=== PATIENT | female | born 1955 | race Caucasian/White ===

== ENCOUNTER 2021-04-22 22:51 | Inpatient (IN) | payer MEDICARE, SELFPAY ==
[2021-04-22 22:56] VITALS: BP 152/88; PULSE 76; RESP 18; TEMP 36.6; O2SAT 100; BMI 20.1
--- NOTE | 2021-04-22 22:58 | ED.C_ITS ---
HPI - Psych General: Chief Complaint: Psychiatric Symptoms Stated Complaint: SI Time Seen by Provider: 04/22/21 22:52 Source: patient, EMS and police Mode of arrival: EMS Limitations: no limitations History of Present Illness: HPI Narrative: 66-year-old female who is here with police along with EMS. Patient had rested her the night and will call for DUI. States that she got very angry wants to rest today and they were she became combative with them stating that she no longer wanted to live since she is being arrested. She told him that she want to run into a 18 butterfield. Patient here is intoxicated and elevated mood has not been combative is cooperative with me she denies being suicidal or homicidal at this point. Associated symptoms: Reports suicidal ideation Review of Systems Const: Denies: fever(s), chills, body aches or change in appetite Eyes: Denies: blurry vision or eye discomfort ENMT: Denies: throat pain or dental pain Card: Denies: chest pain Resp: Denies: dyspnea GI: Denies: abdominal pain, nausea, vomiting or diarrhea : Denies: dysuria Musc: Denies: neck pain or back pain Skin/Breast: Denies: rash Neuro: Denies: headache(s) Psych: Reports: suicidal ideation Santo/Lymph: Denies: easy bruising All/Imm: Denies: urticaria Physical Exam Const: COMMON NORMALS: no acute distress, patient oriented x3 and healthy appearing GENERAL APPEARANCE: disheveled OTHER: intoxicated HENMT: COMMON NORMALS: normocephalic and atraumatic HEAD & SCALP: normocephalic and atraumatic Eye: COMMON NORMALS: Equal, round and reactive pupils present and EOMs intact bilaterally PUPIL: Yes Equal, round and reactive pupils present Neck/C-Spine: COMMON NORMALS: full ROM and supple Chest: COMMONS NORMALS: normal inspection of the chest and normal palpation of entire chest wall Resp: COMMON NORMALS: normal respiratory effort, No retractions, No use of accessory muscles and clear to auscultation bilaterally AUSCULTATION: clear to auscultation bilaterally Cardio: COMMON NORMALS: regular rate, regular rhythm and No murmurs present (Cardio) RATE: regular rate RHYTHM: regular rhythm GI: COMMON NORMALS: Normal to inspection, nondistended, normoactive bowel sounds present, Soft to palpation, non-tender and no masses PALPATION: Yes Soft to palpation Extremity: COMMON NORMALS: normal to inspection and full ROM Neuro: COMMON NORMALS: patient oriented x3, moves all extremities and no focal motor deficits Psych: COMMON NORMALS: mental status grossly normal, Normal thought process present and cooperative ACTIVITY/MOTOR BEHAVIOR: Yes hyperactivity MOOD & AFFECT: Yes elevated mood THOUGHT PROCESS: Normal thought process present THOUGHT CONTENT: No Suicidality present and No Homicidality present Skin: COMMON NORMALS: no rashes or lesions noted and no wounds GENERAL SKIN EXAM: no rashes or lesions noted Course Vital Signs: Vital signs: Vital Signs Temperature 97.9 F 04/22/21 22:56 Pulse Rate 70 04/23/21 03:00 Respiratory Rate 15 04/23/21 03:00 Blood Pressure 124/67 04/23/21 03:00 Pulse Oximetry 95 04/23/21 03:00 MDM - Psych MDM Narrative: Medical decision making narrative: Patient presents here with suicidal ideation with alcohol intoxication. I had patient evaluated by Dr. Flores who feels she needs to be under 96-hour hold and further evaluation patient's been cooperative here. Spoke to Dr. Mosqueda and will admit to the psychiatric unit. Lab Data: Labs: Lab Results 04/22/21 04/22/21 23:05 23:05 WBC 10.2 10^3/uL H 10 ^3/uL (4.0-10.0) RBC 4.79 10^6/uL 10^6 /uL (4.1-5.3) Hgb 15.8 g/dL H g/dL (11.5-15.3) Hct 45.8 % % (37.0-47.0) MCV 95.6 fl fl (81-99) MCH 33.0 pg pg (28.0-34.0) MCHC 34.5 g/dL g/dL (30.0-36.0) RDW 12.3 % % (12.1-15.1) Plt Count 388 10^3/cmm 10^3 /cmm (130-400) MPV 9.1 fL fL (7.4-10.4) Neut % (Auto) 45.4 % % Lymph % (Auto) 44.2 % % [place] % (Auto) 6.0 % % Eos % (Auto) 2.6 % % Baso % (Auto) 0.5 % % Neut # (Auto) 4.62 10^3/uL 10^3 /uL (1.8-7.7) Lymph # (Auto) 4.5 10^3/uL 10^3/ uL (0.8-4.8) [place] # (Auto) 0.6 10^3/uL 10^3/ uL (0.2-0.9) Eos # (Auto) 0.3 10^3/uL 10^3/ uL (0.0-0.8) Baso # (Auto) 0.1 10^3/uL 10^3/ uL (0.0-0.1) Nucleated RBC % (a uto) 0 % % Nucleated RBCs # 0.0 /100WBC /100W BC Sodium 140 mmol/L mmol/L (136-145) Potassium 4.6 mmol/L mmol/L (3.5-5.1) Chloride 99 mmol/L mmol/L (98-107) Carbon Dioxide 23 mmol/L mmol/L (22-29) Anion Gap 22.6 H (5-19) BUN 14 mg/dL mg/dL (8-23) Creatinine 0.6 mg/dL mg/dL (0.5-0.9) GFR Calculation 100.3 mL/min mL/m in (90-130) Glucose 73 mg/dL mg/dL (65-115) Calculated Osmolal ity 289 mOsm/kg mOsm/ kg (285-295) Calcium 8.8 mg/dL mg/dL (8.5-10.5) Total Bilirubin 0.4 mg/dL mg/dL (0.15-1.2) AST 148 U/L H U/L (0-32) ALT 124 U/L H U/L (0-33) Alkaline Phosphata se 80 IU/L IU/L (35-105) Total Protein 8.0 g/dL g/dL (6.6-8.7) Albumin 4.4 g/dL g/dL (3.5-5.2) Globulin 3.6 g/dL g/dL (1.3-4.6) Salicylates < 0.3 mg/dL L mg/ dL (3-10) Acetaminophen < 5.0 ug/mL L ug/ mL (10-30) Ethyl Alcohol 152 mg/dL H mg/dL (0-10) Discharge Plan Discharge Patient Disposition: Admitted As Inpatient Clinical Impression: Suicidal ideation, Alcohol intoxication Condition: Stable Coding Level of Care Code ED Shagger for Reyna Fwd Exam Comprehensive
[2021-04-22 23:59] LABS: Basophils # 0.1 10^3/uL (0.0-0.1); Basophils % 0.5 %; Eosinophils # 0.3 10^3/uL (0.0-0.8); Eosinophils % 2.6 %; Hematocrit 45.8 % (37.0-47.0); Hemoglobin 15.8 g/dL (11.5-15.3); Lymphocytes # 4.5 10^3/uL (0.8-4.8); Lymphocytes % 44.2 %; Mean Corpuscular HGB Conc 34.5 g/dL (30.0-36.0); Mean Corpuscular Volume 95.6 fl (81-99); Mean Platelet Volume 9.1 fL (7.4-10.4); Monocytes # 0.6 10^3/uL (0.2-0.9); Neutrophils # 4.62 10^3/uL (1.8-7.7); Neutrophils % 45.4 %; Nucleated Red Blood Cells % 0 %; Platelet Count 388 10^3/cmm (130-400); Red Blood Count 4.79 10^6/uL (4.1-5.3); Red Cell Distribution Width 12.3 % (12.1-15.1); White Blood Count 10.2 10^3/uL (4.0-10.0)
[2021-04-23 00:15] LABS: Alanine Aminotransferase 124 U/L (0-33); Albumin Level 4.4 g/dL (3.5-5.2); Alcohol Level 152 mg/dL (0-10); Alkaline Phosphatase 80 IU/L (35-105); Aspartate Amino Transferase 148 U/L (0-32); Blood Urea Nitrogen 14 mg/dL (8-23); Calcium 8.8 mg/dL (8.5-10.5); Carbon Dioxide 23 mmol/L (22-29); Chloride 99 mmol/L (98-107); Globulin 3.6 g/dL (1.3-4.6); Glomerular Filtration Rate 100.3 mL/min (90-130); Glucose 73 mg/dL (65-115); Osmolality Calculated 289 mOsm/kg (285-295); Sodium 140 mmol/L (136-145); Total Bilirubin 0.4 mg/dL (0.15-1.2)
[2021-04-23 00:27] LABS: Acetaminophen < 5.0 ug/mL (10-30); Anion Gap 22.6 (5-19); Potassium 4.6 mmol/L (3.5-5.1); Salicylate < 0.3 mg/dL (3-10)
--- NOTE | 2021-04-23 01:31 | PC.NURSE ---
encouraged patient to provide urine specimen. states she can't go right now.
[2021-04-23 03:00] VITALS: BP 124/67; PULSE 70; RESP 15; O2SAT 95
--- NOTE | 2021-04-23 08:32 | PC.NURSE ---
Recieved report from RN, rounded on pt. Pt appeared to be resting quietly in bed with sitter at doorway. No needs stated
--- NOTE | 2021-04-23 09:34 | PC.PHAR ---
medications entered are from the pts med bottles she brought in and what the pharmacy states they have filled recently
--- NOTE | 2021-04-23 10:39 | PC.NURSE ---
Report called to NPU, given to EVE dAame. Pt will go to room 128
[2021-04-23 14:00] VITALS: BP 150/93; PULSE 89; RESP 18; TEMP 37; O2SAT 96
[2021-04-23] MEDS: LORazepam 2 mg Tablet PO ×2 (16:05→21:40)
--- NOTE | 2021-04-23 16:32 | PC.NURSE ---
Admission Per ER- 66-year-old female who is here with police along with EMS. Patient had rested her the night and will call for DUI. States that she got very angry wants to rest today and they were she became combative with them stating that she no longer wanted to live since she is being arrested. She told him that she want to run into a 18 butterfield. Patient here is intoxicated and elevated mood has not been combative is cooperative with me she denies being suicidal or homicidal at this point. Upon arrival to unit, patient is calm, cooperative, A&OX4. Tearful and anxious throughout intake process. Patient endorses daily ETOH use of 1 pint daily for past 5 days. Daily drinking for years but was detoxed inpatient at [facility] and discharged 1 week ago. Stayed sober 2 days before drinking again. Lots of stressers at this time. Living in car, father facing surgery next week. Feels she does not know how to quit drinking and lets everyone done. Denies current SI at this moment. Moderate tremors noted, anxiety and both AVH. Ativan 2 mg PO given per protocol for CIWA of 15.
[2021-04-23 20:49] VITALS: BP 124/74; PULSE 86; RESP 16; TEMP 36.9; O2SAT 97
[2021-04-23] MEDS: lisinopril 5 mg Tablet 2.5 MG PO (21:39)
[2021-04-23] MEDS: gabapentin 300 mg Capsule PO (21:40)
[2021-04-23] MEDS: atorvastatin 40 mg Tablet PO (21:40)
[2021-04-23] MEDS: PARoxetine 20 mg Tablet PO (21:40)
[2021-04-23] MEDS: metoprolol succinate ER (24 HR) 25 mg Tablet PO (21:40)
[2021-04-23] MEDS: trazodone 50 mg Tablet 25 MG PO (21:40)
[2021-04-24 06:00] VITALS: BP 128/81; PULSE 69; RESP 17; TEMP 36.7; O2SAT 97
--- NOTE | 2021-04-24 07:43 | W.PM.NPUH&PS ---
Providers/Chief Complaint Admitting Physician: Bruno Hoang MD Chief Complaint: SI HPI NPU History of Present Illness Adina Rodriguez is a 66 year old female who was brought to the emergency room by police with the following report: HPI - Psych General: Chief Complaint: Psychiatric Symptoms Stated Complaint: SI Time Seen by Provider: 04/22/21 22:52 Source: patient, EMS and police Mode of arrival: EMS Limitations: no limitations History of Present Illness: HPI Narrative: 66-year-old female who is here with police along with EMS. Patient had rested her the night and will call for DUI. States that she got very angry wants to rest today and they were she became combative with them stating that she no longer wanted to live since she is being arrested. She told him that she want to run into a 18 butterfield. Patient here is intoxicated and elevated mood has not been combative is cooperative with me she denies being suicidal or homicidal at this point. Associated symptoms: Reports suicidal ideation Affidavit filled out by the police: After being arrested roadside for DWI Luh Rodriguez stated that she wanted to while trying to provide a breath sample. She would not cooperate and kept saying that she wanted to and to let her out of custodial. So she can run into an 18 butterfield and . She stated she wanted law enforcement to shoot her. Tase her. Start her and let her . After being loaded into the ambulance to be transported for 96-hour hold, Luh tried to choke herself with the seatbelt on the EMS cot. She tried to use the handcuffs to cut her wrist and stated that she wanted to several more times traveling to the hospital. Other affidavit stated while conducting an S FST test on Luh she stated multiple times that she wanted to . She then stated she wanted to walk out the door and hit by a semitruck had L&I. Then while attempting to load her into the patrol car she stated several more times that she wanted to . Michael seems to be disoriented and not to be in her correct state of mind. Another after dating stating upon responding to patient in care of [facility], I found patient screaming that she would kill herself by running into traffic. She has Yandel to kill her. Said she would kill herself and on route attempted to wrap straps around her neck. See the consultation note done by Dr. Flores when she was in the emergency room. She was recently admitted to [facility] in [place] due to alcohol intoxication. Initially treated for alcohol withdrawal. She says that she was having DTs. She was transferred to the psychiatry unit and started on Wellbutrin 150 mg. He said that she had been on Paxil 20 mg daily for about 1 month prior to the hospitalization. But had stopped taking it because it was not doing anything. She had been prescribed that previously because it had helped her when she was in her 30s. She took it several times and it helped with her depression at that time. She would only take it for about 6 months and then stopped taking it. She would start taking it again when she got depressed. She does not know if they thought that she was still taking the Paxil when she was in [facility]. He says that she was diagnosed as bipolar 2. She thought that she was on Lamictal which was started by a kiln hand. She does not know what it is for. It was not in her medications that she brought here. She is on gabapentin 3 times a day. She was also started on Antabuse at [facility]. She said it cost her almost $60 for 30-day supply. She said that she was off of alcohol for about 1 week and felt fantastic. She said that she took up with of alcohol 1 day to see if it would cause any problems with the Antabuse. It did not. She decided to try at the next day and took a sip of alcohol without any results. Then she got intoxicated and never got sick. She says that she was taking the Antabuse all that time. She said that she really wanted it to make her sick because that is what it is supposed to do. She was disappointed that it did not. She denies the police reports that she tried to strangle herself with the seatbelt in the ambulance and that she asked them to shoot her. She does say that she probably did say something about running into traffic and wanting to get hit by a truck. She has never been in an alcohol treatment program. She has recently purchased a tiny home. She has about $21,000 invested in and does not want to lose it. When she spoke with Dr. Flores in the emergency room she was extremely concerned that she might miss the hearing for her unemployment. She thought that her cell phone was still in her car which had been probably impounded. Actually the phone was in her personal belongings and she was able to complete the call yesterday at 2:30 PM. Is that it went well and that her unemployment is still in effect. She agreed to restart the Paxil and probably increase it to 40 mg soon. She will continue on the Wellbutrin and the gabapentin. PAST PSYCHIATRIC HISTORY As above SOCIAL HISTORY As above Meds NPU Home Medications Medication Instructions Recorded Confirmed Last Taken Type Lactobacillus rhamnosus GG 1 cap PO DAILY 04/23/21 04/23/21 Unknown History [Culturelle] aspirin 325 mg PO QAM 04/23/21 04/23/21 Unknown History atorvastatin 40 mg PO QPM 04/23/21 04/23/21 Unknown History azelastine 1 spray INTRANASAL BID PRN 04/23/21 04/23/21 Unknown History bupropion HCl 150 mg PO QAM 04/23/21 04/23/21 Unknown History clonazepam 0.5 mg PO BID PRN 04/23/21 04/23/21 Unknown History clopidogrel 75 mg PO QAM 04/23/21 04/23/21 Unknown History disulfiram 250 mg PO QAM 04/23/21 04/23/21 Unknown History gabapentin 300 mg PO TID 04/23/21 04/23/21 Unknown History guaifenesin [Mucinex] 600 mg PO BID PRN 04/23/21 04/23/21 Unknown History lisinopril 2.5 mg PO QPM 04/23/21 04/23/21 Unknown History metoprolol succinate 25 mg PO QPM 04/23/21 04/23/21 Unknown History paroxetine HCl [Paxil] 20 mg PO QPM 04/23/21 04/23/21 Unknown History prednisone See Rx Instructions .ROUTE .COMPLEX 04/23/21 04/23/21 Unknown History spironolactone 12.5 mg PO QAM 04/23/21 04/23/21 Unknown History thiamine HCl (vitamin B1) 100 mg PO DAILY 04/23/21 04/23/21 Unknown History trazodone 25 mg PO BEDTIME 04/23/21 04/23/21 Unknown History warfarin 5 mg PO DAILY 04/23/21 04/23/21 Unknown History Allergies Allergy/AdvReac Type Severity Reaction Status Date / Time Sulfa (Sulfonamide Allergy Unknown Verified 04/23/21 05:45 Antibiotics) Mental Status Exam MSE Comments: This is a thin 66-year-old female who appears her stated age and is in no acute distress. She is fairly well groomed in hospital scrubs. psychomotor activity mildly decreased. Speech is at a regular rate and rhythm, normal volume, good articulation, not pressured. Alert, oriented X3 Attention and concentration appears to be good. Memory is intact Mood is depressed. Affect is moderately dysphoric. Thought process is logical and goal-directed. Thought content: Denies auditory and visual hallucinations. No delusions or paranoia are noted. No current suicidal ideation, and no homicidal ideation. Fund of knowledge is appears to be normal. Insight and judgment appear to be fair. Impulse control is appears to be impaired given the other unintended alcohol intoxication and driving while intoxicated.. Vitals/I&O/Wt Last Vital Signs Temp 98.1 F 04/24/21 06:00 Pulse 69 04/24/21 06:00 Resp 17 04/24/21 06:00 BP 128/81 04/24/21 06:00 Pulse Ox 97 04/24/21 06:00 Weight last 48 hrs Weight 49.895 kg Data NPU : 04/22/21 23:05 04/22/21 23:05 A&P Assessment and plan (1) Depression: Status: Acute Qualifiers: Depression Type: major depressive disorder Major depression recurrence: recurrent Active/Remission status: currently active Major depression episode severity: severe Psychotic features: without psychotic features Qualified Code(s): F33.2 - Major depressive disorder, recurrent severe without psychotic features (2) Suicidal ideation: Status: Acute (3) Alcohol intoxication: Status: Acute Qualifiers: Complication of substance-induced condition: with unspecified complication Qualified Code(s): F10.929 - Alcohol use, unspecified with intoxication, unspecified Additional A&P Information This is a 66-year-old admitted for alcohol intoxication and suicidal attempts and threats when arrested. Plan: 1. Continue current medication. We will start her back on her Paxil which she had been on previously. Will consider increasing to 40 mg. 2. Continue every 15 minute checks for safety. 3. Encourage individual, group and milieu therapies. 4. Encourage sober living treatment after discharge at the highest level of care to which she is willing to commit. 5. We will monitor for safety for herself in the community prior to discharge. Involuntary Hold Information 96 Hour Hold: 96 Hour Involuntary Admission: Yes 96 Hour Hold Ending Date: 04/29/21 96 Hour Hold Ending Time: 23:10 Attestations NPU Medical Necessity Statement*: Inpatient hospitalization is medically necessary and the clinically appropriate intervention at this time. We will initiate medications and make changes as indicated. She will be in the hospital for over 2 midnights. Likely length of stay 4-6 days Coding Level of Care Code Acute Shop Steward for Reyna Fernandez Diagnoses Depression F33.2 Depression Type: major depressive disorder Major depression recurrence: recurrent Active/Remission status: currently active Major depression episode severity: severe Psychotic features: without psychotic features Suicidal ideation R45.851 Alcohol intoxication F10.929 Complication of substance-induced condition: with unspecified complication
[2021-04-24] MEDS: fixodent 39 gm Tube 1 APPLIC DENTAL (09:37)
[2021-04-24] MEDS: clopidogrel 75 mg Tablet PO (09:38)
[2021-04-24] MEDS: multivitamin therapeutic Tablet 1 TAB PO (09:38)
[2021-04-24] MEDS: spironolactone 25 mg Tablet 12.5 MG PO (09:38)
[2021-04-24] MEDS: thiamine 100 mg Tablet PO (09:38)
[2021-04-24] MEDS: buPROPion XL (24 HR) 150 mg Tablet PO (09:38)
[2021-04-24] MEDS: folic acid 1 mg Tablet PO (09:38)
[2021-04-24] MEDS: gabapentin 300 mg Capsule PO ×3 (09:38→20:57)
[2021-04-24] MEDS: aspirin 325 mg Tablet PO (09:38)
--- NOTE | 2021-04-24 10:33 | NPU.GN ---
[facility] Group Topic:Crisis Plan, Triggers, Coping Mechanisms. General Mood of Group: Adina did not attend group today she was sleeping.
[2021-04-24 14:00] VITALS: BP 107/73; PULSE 74; RESP 18; TEMP 36.6; O2SAT 97
[2021-04-24] MEDS: nicotine 21 mg Patch 1 PATCH TRANSDERMA (14:39)
[2021-04-24] MEDS: OLANZapine 5 mg ODT PO (14:39)
[2021-04-24] MEDS: atorvastatin 40 mg Tablet PO (20:57)
[2021-04-24] MEDS: lisinopril 5 mg Tablet 2.5 MG PO (20:57)
[2021-04-24] MEDS: PARoxetine 20 mg Tablet PO (20:57)
[2021-04-24] MEDS: trazodone 50 mg Tablet 25 MG PO (20:58)
[2021-04-24] MEDS: metoprolol succinate ER (24 HR) 25 mg Tablet PO (20:58)
[2021-04-24 22:00] VITALS: BP 107/73; PULSE 74; RESP 18; TEMP 36.6; O2SAT 97
[2021-04-25] MEDS: trazodone 50 mg Tablet PO (01:16)
[2021-04-25] MEDS: hyDROXYzine 25 mg Capsule 50 MG PO (01:16)
--- NOTE | 2021-04-25 01:24 | PC.NURSE ---
Vistaril 50 mg PO given for anxiety and Trazadone 50 mg PO given to help pt sleep.
[2021-04-25] MEDS: OLANZapine 5 mg ODT PO (02:45)
--- NOTE | 2021-04-25 02:45 | PC.NURSE ---
Pt continues to c/o anxiety. Zydis 5 mg PO administered without complication.
[2021-04-25 06:00] VITALS: BP 86/53; PULSE 78; RESP 16; TEMP 36.9; O2SAT 97
[2021-04-25] MEDS: thiamine 100 mg Tablet PO (09:16)
[2021-04-25] MEDS: clopidogrel 75 mg Tablet PO (09:16)
[2021-04-25] MEDS: multivitamin therapeutic Tablet 1 TAB PO (09:16)
[2021-04-25] MEDS: buPROPion XL (24 HR) 150 mg Tablet PO (09:16)
[2021-04-25] MEDS: gabapentin 300 mg Capsule PO ×3 (09:16→21:05)
[2021-04-25] MEDS: folic acid 1 mg Tablet PO (09:16)
[2021-04-25] MEDS: spironolactone 25 mg Tablet 12.5 MG PO (09:16)
[2021-04-25] MEDS: aspirin 325 mg Tablet PO (09:16)
--- NOTE | 2021-04-25 12:52 | NPU.GN ---
[facility] Topic:Jorge Activities General Mood of Group Adina did not attend or participate in group today she was sleeping.
[2021-04-25 14:00] VITALS: BP 86/58; PULSE 60; RESP 18; TEMP 36.5; O2SAT 97
--- NOTE | 2021-04-25 14:02 | W.PM.NPUPNS ---
Subjective NPU Subjective: Interval history: She continues to be very depressed. She denies wanting to be . She is worried about her car which is impounded and she worries about how much that is going to cost her. She worries about her father who is going to have prostate surgery soon and she does not know exactly when. She has promised him that she will take care of him. She has tried to get in touch with her son Vishnu who lives in [place] who her tiny house is. The tiny houses on his land. He has not been answering his phone. She thinks that he will get her car out of impound if she can get in touch with him. He can also find out when her father surgery is. She only slept for a couple of hours after taking the trazodone 25 mg last night. She got up and took the as needed 50 mg and also some Vistaril and Zydis. She would like to try increasing the trazodone at bedtime to 100 mg. Mental Status Exam MSE Comments: This is a thin 66-year-old female who appears her stated age and is in no acute distress. She is fairly well groomed in hospital scrubs. psychomotor activity mildly decreased. Speech is at a regular rate and rhythm, normal volume, good articulation, not pressured. Alert, oriented X3 Attention and concentration appears to be good. Memory is intact Mood is depressed. Affect is moderately dysphoric. Thought process is logical and goal-directed. Thought content: Denies auditory and visual hallucinations. No delusions or paranoia are noted. No current suicidal ideation, and no homicidal ideation. Fund of knowledge is appears to be normal. Insight and judgment appear to be fair. Impulse control is appears to be impaired given the other unintended alcohol intoxication and driving while intoxicated.. Cognition: Patient Appearance: Appropriate Level of Consciousness: Awake, Alert and Appropriate Patient Cognition Impaired: No Ability to Follow Directions: Fair Patient Orientation (long list): Person, Place, Time and Name Comprehension Ability: No Impairment Hallucination Type: None Delusion Description: Not Present Thought Process: Appropriate Affect: Affect Description: Appropriate and Anxious Behavior: Patient Behavior: Appropriate Speech Pattern: Appropriate Vitals/I&O/Wt Last Vital Signs Temp 98.4 F 04/25/21 06:00 Pulse 78 04/25/21 06:00 Resp 16 04/25/21 06:00 BP 86/53 04/25/21 06:00 Pulse Ox 97 04/25/21 06:00 Data NPU : 04/22/21 23:05 04/22/21 23:05 A&P Assessment and plan (1) Depression: Status: Acute Qualifiers: Depression Type: major depressive disorder Major depression recurrence: recurrent Active/Remission status: currently active Major depression episode severity: severe Psychotic features: without psychotic features Qualified Code(s): F33.2 - Major depressive disorder, recurrent severe without psychotic features (2) Suicidal ideation: Status: Acute (3) Alcohol intoxication: Status: Acute Qualifiers: Complication of substance-induced condition: with unspecified complication Qualified Code(s): F10.929 - Alcohol use, unspecified with intoxication, unspecified Additional A&P Information This is a 66-year-old admitted for alcohol intoxication and suicidal attempts and threats when arrested. Plan: 1. Continue current medication. We will start her back on her Paxil which she had been on previously. Will consider increasing to 40 mg. Increase trazodone to 100 mg at bedtime. 2. Continue every 15 minute checks for safety. 3. Encourage individual, group and milieu therapies. 4. Encourage sober living treatment after discharge at the highest level of care to which she is willing to commit. 5. We will monitor for safety for herself in the community prior to discharge. Involuntary Hold Information 96 Hour Hold: 96 Hour Involuntary Admission: Yes 96 Hour Hold Ending Date: 04/29/21 96 Hour Hold Ending Time: 23:10 Attestations NPU Medical Necessity Statement*: Inpatient hospitalization is medically necessary and the clinically appropriate intervention at this time. We will initiate medications and make changes as indicated. Coding Level of Care Code Acute Director Of Residential Services for Reyna Fernandez Diagnoses Depression F33.2 Depression Type: major depressive disorder Major depression recurrence: recurrent Active/Remission status: currently active Major depression episode severity: severe Psychotic features: without psychotic features Suicidal ideation R45.851 Alcohol intoxication F10.929 Complication of substance-induced condition: with unspecified complication
[2021-04-25] MEDS: metoprolol succinate ER (24 HR) 25 mg Tablet PO (21:05)
[2021-04-25] MEDS: PARoxetine 20 mg Tablet PO (21:05)
[2021-04-25] MEDS: atorvastatin 40 mg Tablet PO (21:05)
[2021-04-25] MEDS: lisinopril 5 mg Tablet 2.5 MG PO (21:06)
[2021-04-25 22:00] VITALS: BP 98/62; PULSE 64; RESP 15; TEMP 36.7; O2SAT 97
[2021-04-26] MEDS: hyDROXYzine 25 mg Capsule 50 MG PO ×2 (04:58→20:32)
[2021-04-26] MEDS: nicotine 21 mg Patch 1 PATCH TRANSDERMA (04:58)
--- NOTE | 2021-04-26 05:01 | PC.NURSE ---
Pt presented to nurse's station requesting anxiety medication. Pt appears restless and irritable. Vistaril 50mg PO administered.
[2021-04-26 06:00] VITALS: BP 91/56; PULSE 59; RESP 17; TEMP 36.9; O2SAT 96
[2021-04-26 08:51] LABS: Amphetamines Screen Urine Negative (Negative); Barbiturates Screen Urine Negative (Negative); Benzodiazepines Screen Urine Positive (Negative); Cocaine Screen Urine Negative (Negative); Opiate Screen Urine Negative (Negative); PCP Screen Urine Negative (Negative); THC Screen Urine Negative (Negative)
[2021-04-26] MEDS: buPROPion XL (24 HR) 150 mg Tablet PO (09:10)
[2021-04-26] MEDS: thiamine 100 mg Tablet PO (09:10)
[2021-04-26] MEDS: clopidogrel 75 mg Tablet PO (09:10)
[2021-04-26] MEDS: aspirin 325 mg Tablet PO (09:10)
[2021-04-26] MEDS: spironolactone 25 mg Tablet 12.5 MG PO (09:10)
[2021-04-26] MEDS: gabapentin 300 mg Capsule PO ×3 (09:10→20:22)
[2021-04-26] MEDS: folic acid 1 mg Tablet PO (09:10)
[2021-04-26] MEDS: multivitamin therapeutic Tablet 1 TAB PO (09:10)
--- NOTE | 2021-04-26 11:56 | W.PM.NPUPNS ---
Subjective NPU Subjective: Interval history: She says that she has been doing better. She attributes that to not drinking enough smoking. Her thoughts are more clear. She is less depressed. She has not had any thoughts of wanting to be . She would like to try the 500 mg Antabuse. She really wants something that will make her sick if she drinks. She has not had any side effects from the Antabuse 250 mg. When she leaves she will go with her son. Her tiny houses on her son's property. She denies any side effects from her medications. Mental Status Exam MSE Comments: This is a thin 66-year-old female who appears her stated age and is in no acute distress. She is fairly well groomed in hospital scrubs. psychomotor activity is normal. Speech is at a regular rate and rhythm, normal volume, good articulation, not pressured. Alert, oriented X3 Attention and concentration appears to be good. Memory is intact Mood is less depressed. Affect is mildly dysphoric. Thought process is logical and goal-directed. Thought content: Denies auditory and visual hallucinations. No delusions or paranoia are noted. No current suicidal ideation, and no homicidal ideation. Fund of knowledge is appears to be normal. Insight and judgment appear to be fair. Impulse control is appears to be impaired given the other unintended alcohol intoxication and driving while intoxicated.. Cognition: Patient Appearance: Appropriate Level of Consciousness: Awake, Alert and Appropriate Patient Cognition Impaired: No Ability to Follow Directions: Fair Patient Orientation (long list): Person, Place, Time and Name Comprehension Ability: No Impairment Hallucination Type: None Delusion Description: Not Present Thought Process: Appropriate Affect: Affect Description: Appropriate and Calm Behavior: Patient Behavior: Appropriate and Cooperative Speech Pattern: Appropriate and Clear Vitals/I&O/Wt Last Vital Signs Temp 98.4 F 04/26/21 06:00 Pulse 59 L 04/26/21 06:00 Resp 17 04/26/21 06:00 BP 91/56 04/26/21 06:00 Pulse Ox 96 04/26/21 06:00 Data NPU : 04/22/21 23:05 04/22/21 23:05 A&P Assessment and plan (1) Depression: Status: Acute Qualifiers: Depression Type: major depressive disorder Major depression recurrence: recurrent Active/Remission status: currently active Major depression episode severity: severe Psychotic features: without psychotic features Qualified Code(s): F33.2 - Major depressive disorder, recurrent severe without psychotic features (2) Suicidal ideation: Status: Acute (3) Alcohol intoxication: Status: Acute Qualifiers: Complication of substance-induced condition: with unspecified complication Qualified Code(s): F10.929 - Alcohol use, unspecified with intoxication, unspecified Additional A&P Information This is a 66-year-old admitted for alcohol intoxication and suicidal attempts and threats when arrested. Plan: 1. Continue current medication. We will start her back on her Paxil which she had been on previously. Will consider increasing to 40 mg. Increase trazodone to 100 mg at bedtime. 2. Continue every 15 minute checks for safety. 3. Encourage individual, group and milieu therapies. 4. Encourage sober living treatment after discharge at the highest level of care to which she is willing to commit. 5. We will monitor for safety for herself in the community prior to discharge. Involuntary Hold Information 96 Hour Hold: 96 Hour Involuntary Admission: Yes 96 Hour Hold Ending Date: 04/29/21 96 Hour Hold Ending Time: 23:10 Attestations NPU Medical Necessity Statement*: Inpatient hospitalization is medically necessary and the clinically appropriate intervention at this time. We will initiate medications and make changes as indicated. 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
[2021-04-26 14:00] VITALS: BP 110/62; PULSE 69; RESP 17; TEMP 36.9; O2SAT 96
[2021-04-26 19:41] VITALS: BP 96/61; PULSE 68; RESP 16; O2SAT 95
[2021-04-26] MEDS: lisinopril 5 mg Tablet 2.5 MG PO (20:21)
[2021-04-26] MEDS: metoprolol succinate ER (24 HR) 25 mg Tablet PO (20:21)
[2021-04-26] MEDS: PARoxetine 20 mg Tablet PO (20:22)
[2021-04-26] MEDS: atorvastatin 40 mg Tablet PO (20:22)
--- NOTE | 2021-04-26 20:32 | PC.NURSE ---
Vistaril administered for anxiety and Trazadone administered for sleep aide.
[2021-04-27 06:00] VITALS: BP 96/62; PULSE 62; RESP 15; TEMP 36.8; O2SAT 98
[2021-04-27] MEDS: aspirin 325 mg Tablet PO (09:06)
[2021-04-27] MEDS: buPROPion XL (24 HR) 150 mg Tablet 300 MG PO (09:06)
[2021-04-27] MEDS: multivitamin therapeutic Tablet 1 TAB PO (09:07)
[2021-04-27] MEDS: thiamine 100 mg Tablet PO (09:07)
[2021-04-27] MEDS: hyDROXYzine 25 mg Capsule 50 MG PO (09:07)
[2021-04-27] MEDS: clopidogrel 75 mg Tablet PO (09:07)
[2021-04-27] MEDS: spironolactone 25 mg Tablet 12.5 MG PO (09:07)
[2021-04-27] MEDS: folic acid 1 mg Tablet PO (09:07)
[2021-04-27] MEDS: nicotine 21 mg Patch 1 PATCH TRANSDERMA (09:08)
--- NOTE | 2021-04-27 09:15 | P.NPUPN_ITS ---
Subjective NPU Subjective: Interval history: She is a little down this morning. She had a fairly good day yesterday. However she called her son to see if he could come and pick her up today and he did not return her call. She knows that her family is upset with her about what she did. She does not want to interrupt their Jorge by being more insistent. She is going to wait until tomorrow to be released. She thought that the Antabuse was abounding the medications that she brought here but it was not. She will have to wait until she is released before she can start taking it. Mental Status Exam MSE Comments: This is a thin 66-year-old female who appears her stated age and is in no acute distress. She is fairly well groomed in hospital scrubs. psychomotor activity is normal. Speech is at a regular rate and rhythm, normal volume, good articulation, not pressured. Alert, oriented X3 Attention and concentration appears to be good. Memory is intact Mood is depressed. Affect is mildly dysphoric. Thought process is logical and goal-directed. Thought content: Denies auditory and visual hallucinations. No delusions or paranoia are noted. No current suicidal ideation, and no homicidal ideation. Fund of knowledge is appears to be normal. Insight and judgment appear to be fair. Impulse control is appears to be impaired given the other unintended alcohol intoxication and driving while intoxicated.. Cognition: Patient Appearance: Appropriate Level of Consciousness: Awake, Alert and Appropriate Patient Cognition Impaired: No Ability to Follow Directions: Fair Patient Orientation (long list): Person, Place, Time and Name Comprehension Ability: No Impairment Hallucination Type: None Delusion Description: Not Present Thought Process: Appropriate Affect: Affect Description: Appropriate and [place] Behavior: Patient Behavior: Appropriate and Cooperative Speech Pattern: Appropriate and Clear Vitals/I&O/Wt Last Vital Signs Temp 98.2 F 04/27/21 06:00 Pulse 62 04/27/21 06:00 Resp 15 04/27/21 06:00 BP 96/62 04/27/21 06:00 Pulse Ox 98 04/27/21 06:00 Data NPU : 04/22/21 23:05 04/22/21 23:05 A&P Assessment and plan (1) Depression: Status: Acute Qualifiers: Depression Type: major depressive disorder Major depression recurrence: recurrent Active/Remission status: currently active Major depression episode s everity: severe Psychotic features: without psychotic features Qualified Code(s): F33.2 - Major depressive disorder, recurrent severe without psychotic features (2) Suicidal ideation: Status: Acute (3) Alcohol intoxication: Status: Acute Qualifiers: Complication of substance-induced condition: with unspecified complication Qualified Code(s): F10.929 - Alcohol use, unspecified with intoxication, unspecified Additional A&P Information This is a 66-year-old admitted for alcohol intoxication and suicidal attempts and threats when arrested. Plan: 1. Continue current medication. We will start her back on her Paxil which she had been on previously. Will consider increasing to 40 mg. Increase trazodone to 100 mg at bedtime. Increase Wellbutrin to 300 mg we will have to wait until she leaves to start her Antabuse 500 mg daily. 2. Continue every 15 minute checks for safety. 3. Encourage individual, group and milieu therapies. 4. Encourage sober living treatment after discharge at the highest level of care to which she is willing to commit. 5. We will monitor for safety for herself in the community prior to discharge. Involuntary Hold Information 96 Hour Hold: 96 Hour Involuntary Admission: Yes 96 Hour Hold Ending Date: 04/29/21 96 Hour Hold Ending Time: 23:10 Attestations NPU 2 Medical Necessity Statement*: Inpatient hospitalization is medically necessary and the clinically appropriate intervention at this time. We will initiate medi cations and make changes as indicated. 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
[2021-04-27] MEDS: gabapentin 300 mg Capsule PO ×3 (09:41→20:25)
--- NOTE | 2021-04-27 09:42 | PC.NURSE ---
PRN MED PT GIVEN 50MG VISTARIL FOR STATED ANXIETY, WILL CONTINUE TO MONITOR.
[2021-04-27] MEDS: CLONazepam 1 mg Tablet PO (13:38)
[2021-04-27 14:00] VITALS: BP 103/66; PULSE 62; RESP 17; O2SAT 98
[2021-04-27] MEDS: PARoxetine 20 mg Tablet PO (20:25)
[2021-04-27] MEDS: metoprolol succinate ER (24 HR) 25 mg Tablet PO (20:25)
[2021-04-27] MEDS: lisinopril 5 mg Tablet 2.5 MG PO (20:25)
[2021-04-27] MEDS: atorvastatin 40 mg Tablet PO (20:25)
[2021-04-27 22:00] VITALS: RESP 15
[2021-04-28 06:00] VITALS: BP 98/63; PULSE 69; RESP 16; TEMP 37.1; O2SAT 97; BMI 20.1
[2021-04-28] MEDS: clopidogrel 75 mg Tablet PO (08:46)
[2021-04-28] MEDS: folic acid 1 mg Tablet PO (08:46)
[2021-04-28] MEDS: aspirin 325 mg Tablet PO (08:46)
[2021-04-28] MEDS: thiamine 100 mg Tablet PO (08:46)
[2021-04-28] MEDS: nicotine 21 mg Patch 1 PATCH TRANSDERMA (08:46)
[2021-04-28] MEDS: multivitamin therapeutic Tablet 1 TAB PO (08:46)
[2021-04-28] MEDS: buPROPion XL (24 HR) 150 mg Tablet 300 MG PO (08:46)
[2021-04-28] MEDS: gabapentin 300 mg Capsule PO ×3 (08:46→19:28)
[2021-04-28] MEDS: spironolactone 25 mg Tablet 12.5 MG PO (08:46)
[2021-04-28 14:00] VITALS: BP 97/61; PULSE 66; RESP 16; TEMP 36.7; O2SAT 99
[2021-04-28] MEDS: hyDROXYzine 25 mg Capsule 50 MG PO (15:40)
--- NOTE | 2021-04-28 15:41 | PC.NURSE ---
ADMINISTERED VISTARIL 50 MG FOR PT C/O OF INCREASING ANXIETY. WILL MONITOR FOR MEDICATION EFFECTIVENESS.
[2021-04-28] MEDS: metoprolol succinate ER (24 HR) 25 mg Tablet PO (19:28)
[2021-04-28] MEDS: atorvastatin 40 mg Tablet PO (19:28)
[2021-04-28] MEDS: lisinopril 5 mg Tablet 2.5 MG PO (19:28)
[2021-04-28] MEDS: PARoxetine 20 mg Tablet PO (19:28)
[2021-04-28 19:44] VITALS: BP 101/60; PULSE 71; RESP 16; TEMP 37; O2SAT 98
--- NOTE | 2021-04-29 01:57 | P.NPUDS_ITS ---
Diagnoses at Discharge Discharge Diagnosis (1) Depression: Status: Acute Qualifiers: Active/Remission status: currently active Depression Type: major depressive disorder Major depression episode severity: severe Major depression recurrence: recurrent Psychotic features: without psychotic features Qualified Code(s): F33.2 - Major depressive disorder, recurrent severe without psychotic features (2) Suicidal ideation: Status: Acute (3) Alcohol intoxication: Status: Acute Qualifiers: Complication of substance-induced condition: with unspecified complication Qualified Code(s): F10.929 - Alcohol use, unspecified with intoxication, unspecified Reason for Visit Reason for Visit: SI Brief History: HPI NPU History of Present Illness Adina Rodriguez is a 66 year old female who was brought to the emergency room by police with the following report: HPI - Psych General: Chief Complaint: Psychiatric Symptoms Stated Complaint: SI Time Seen by Provider: 04/22/21 22:52 Source: patient, EMS and police Mode of arrival: EMS Limitations: no limitations History of Present Illness: HPI Narrative: 66-year-old female who is here with police along with EMS. Patient had rested her the night and will call for DUI. States that she got very angry wants to rest today and they were she became combative with them stating that she no longer wanted to live since she is being arrested. She told him that she want to run into a [address]. Patient here is intoxicated and elevated mood has not been combative is cooperative with me she denies being suicidal or homicidal at this point. Associated symptoms: Reports suicidal ideation Affidavit filled out by the police: After being arrested roadside for DWI Lhu Rodriguez stated that she wanted to while trying to provide a breath sample. She would not cooperate and kept saying that she wanted to and to let her out of fci. So she can run into an [address] and . She stated she wanted law enforcement to shoot her. Tase her. Start her and let her . After being loaded into the ambulance to be transported for 96-hour hold, Luh tried to choke herself with the seatbelt on the EMS cot. She tried to use the handcu ffs to cut her wrist and stated that she wanted to several more times traveling to the hospital. Other affidavit stated while conducting an S FST test on Luh she stated multiple times that she wanted to . She then stated she wanted to walk out the door and hit by a semitruck had L&I. Then while attempting to load her into the patrol car she stated several more times that she wanted to . Michael seems to be disoriented and not to be in her correct state of mind. Another after dating stating upon responding to patient in care of [facility], I found patient screaming that she would kill herself by running into traffic. She has Ynadel to kill her. Said she would kill herself and on route attempted to wrap straps around her neck. See the consultation note done by Dr. Flores when she was in the emergency room. She was recently admitted to [facility] in [place] due to alcohol intoxication. Initially treated for alcohol withdrawal. She says that she was having DTs. She was transferred to the psychiatry unit and started on Wellbutrin 150 mg. He said that she had been on Paxil 20 mg daily for about 1 month prior to the hospitalization. But had stopped taking it because it was not doing anything. She had been prescribed that previously because it had helped her when she was in her 30s. She took it several times and it helped with her depression at that time. She would only take it for about 6 months and then stopped taking it. She would start taking it again when she got depressed. She does not know if they thought that she was still taking the Paxil when she was in [facility]. He says that she was diagnosed as bipolar 2. She thought that she was on Lamictal which was started by a director of quality improvement. She does not know what it is for. It was not in her medications that she brought here. She is on gabapentin 3 times a day. She was also started on Antabuse at [facility]. She said it cost her almost $60 for 30-day supply. She said that she was off of alcohol for about 1 week and felt fantastic. She said that she took up with of alcohol 1 day to see if it would cause any problems with the Antabuse. It did not. She decided to try at the next day and took a sip of alcohol without any results. Then she got intoxicated and never got sick. She says that she was taking the Antabuse all that time. She said that she really wanted it to make her sick because that is what it is supposed to do. She was disappointed that it did not. She denies the police reports that she tried to strangle herself with the seatbelt in the ambulance and that she asked them to shoot her. She does say that she probably did say something about running into traffic and wanting to get hit by a truck. She has never been in an alcohol treatment program. She has recently purchased a tiny home. She has about $21,000 invested in and does not want to lose it. When she spoke with Dr. Flores in the emergency room she was extremely concerned that she might miss the hearing for her unemployment. She thought that her cell phone was still in her car which had been probably impounded. Actually the phone was in her personal belongings and she was able to complete the call yesterday at 2:30 PM. Is that it went well and that her unemployment is still in effect. She agreed to restart the Paxil and probably increase it to 40 mg soon. She will continue on the Wellbutrin and the gabapentin. PAST PSYCHIATRIC HISTORY As above SOCIAL HISTORY As above Hospital Course Hospital Course She slowly acclimated to the individual, group and milieu therapies provided. Paxil 20 mg and gabapentin 300 mg were continued. Wellbutrin was increased from 150 to 300 mg. She had some withdrawal from alcohol and had to be given several doses of Ativan. She tolerated these doses and showed steady improvement during her stay. She was able to contract for safety outside hospital prior to discharge. During the hospitalization, patient had routine laboratory studies which were within normal limits except for few outliers. Additionally there was a general medical evaluation which was also within normal limits and revealed no new acute processes. Discharge Summary: At the time of discharge, lethality was denied. Mood and anxiety were well managed. Patient endorsed a plan to follow-up with the aftercare recommendations of the treatment team. Patient was evaluated and deemed to be absent credible lethality, and had achieved the maximum benefit from an inpatient hospitalization, so was discharged. Involuntary Hold Information 96 Hour Hold: 96 Hour Involuntary Admission: Yes 96 Hour Hold Ending Date: 04/29/21 96 Hour Hold Ending Time: 23:10 Mental Status Exam MSE Comments: This is a thin 66-year-old female who appears her stated age and is in no acute distress. She is fairly well groomed in hospital scrubs. psychomotor activity is normal. Speech is at a regular rate and rhythm, normal volume, good articulation, not pressured. Alert, oriented X3 Attention and concentration appears to be good. Memory is intact Mood is depressed but better. Affect is mildly dysphoric. Thought process is logical and goal-directed. Thought content: Denies auditory and visual hallucinations. No delusions or paranoia are noted. No current suicidal ideation, and no homicidal ideation. Fund of knowledge is appears to be normal. Insight and judgment appear to be fair. Impulse control is appears to be improved. Cognition: Patient Appearance: Appropriate Level of Consciousness: Awake, Alert and Appropriate Patient Cognition Impaired: No Ability to Follow Directions: Fair Patient Orientation (long list): Person, Place, Time and Name Comprehension Ability: No Impairment Hallucination Type: None Delusion Description: Not Present Thought Process: Appropriate Affect: Affect Description: Appropriate and Calm Behavior: Patient Behavior: Cooperative Speech Pattern: Clear Discharge Data Vitals: Last Vital Signs Temp 98.6 F 04/28/21 19:44 Pulse 71 04/28/21 19:44 Resp 16 04/28/21 19:44 BP 101/60 04/28/21 19:44 Pulse Ox 98 04/28/21 19:44 Discharge Plan Discharge Patient Disposition: Home Condition: Stable Prescriptions: New Antabuse 500 mg PO DAILY 30 Days Qty: 30 RF: 1 trazodone 100 mg Tablet 100 mg PO BEDTIME PRN (Reason: Sleep) 30 Days Qty: 30 RF: 1 paroxetine HCl 20 mg Tablet 40 mg PO BEDTIME 30 Days Qty: 60 RF: 1 bupropion HCl 150 mg Tablet Extended Release 24 Hr 300 mg PO DAILY 30 Days Qty: 30 RF: 1 Continued atorvastatin 40 mg tablet 40 mg PO QPM RF: 0 trazodone 50 mg tablet 25 mg PO BEDTIME RF: 0 aspirin 325 mg tablet 325 mg PO QAM RF: 0 clonazepam 0.5 mg tablet 0.5 mg PO BID PRN (Reason: Anxiety) RF: 0 prednisone 5 mg tablet See Rx Instructions .ROUTE .COMPLEX RF: 0 thiamine HCl (vitamin B1) 100 mg Tablet 100 mg PO DAILY RF: 0 clopidogrel 75 mg tablet 75 mg PO QAM RF: 0 spironolactone 25 mg tablet 12.5 mg PO QAM RF: 0 warfarin 5 mg tablet 5 mg PO DAILY RF: 0 gabapentin 300 mg capsule 300 mg PO TID RF: 0 metoprolol succinate 25 mg tablet extended release 24 hr 25 mg PO QPM RF: 0 azelastine 137 mcg (0.1 %) Aerosol,[place] 1 spray INTRANASAL BID PRN (Reason: Allergy Symptoms) RF: 0 Culturelle 10 billion cell Capsule 1 cap PO DAILY RF: 0 lisinopril 2.5 mg tablet 2.5 mg PO QPM RF: 0 Mucinex 600 mg Tablet Extended Release 12hr 600 mg PO BID PRN (Reason: Congestion) RF: 0 Discontinued disulfiram 250 mg tablet 250 mg PO QAM RF: 0 paroxetine HCl [Paxil] 20 mg Tablet 20 mg PO QPM RF: 0 bupropion HCl 150 mg tablet extended release 24 hr 150 mg PO QAM RF: 0 Discharge Orders: Discharge Order (Routine); Ordered 04/29/21 Ordered By: Bruno Hoang Referrals: [facility] [Other] - 1-3 days (Call to reschedule appointment with psychiatrist for medications. Offices will reopen on 04/30/21. ) Discharge Diet: Regular Discharge Activity: Resume usual activity Patient Instructions: Alcohol Abuse, Bupropion (By mouth), Trazodone (By mouth) (Desyrel, Desyrel Dividose, Oleptro, Trazamine), Disulfiram (By mouth) (Antabuse), Paroxetine (By mouth), Opioid Safety Discharge Attestations NPU Time Spent in Discharge Care*: less than 30 min Specific Discharge Activities: Specific discharge activities: educating patient, discussing with renal case manager/social workers/dc planners, documenting/other paperwork and evaluating patient/reviewing data Coding Level of Care Code Acute [facility] DC note Diagnoses Depression F33.2 Active/Remission status: currently active Depression Type: major depressive disorder Major depression episode severity: severe Major depression recurrence: recurrent Psychotic features: without psychotic features Suicidal ideation R45.851 Alcohol intoxication F10.929 Complication of substance-induced condition: with unspecified complication
[2021-04-29 06:00] VITALS: RESP 15
[2021-04-29] MEDS: clopidogrel 75 mg Tablet PO (08:43)
[2021-04-29] MEDS: nicotine 21 mg Patch 1 PATCH TRANSDERMA (08:43)
[2021-04-29] MEDS: multivitamin therapeutic Tablet 1 TAB PO (08:43)
[2021-04-29] MEDS: buPROPion XL (24 HR) 150 mg Tablet 300 MG PO (08:43)
[2021-04-29] MEDS: aspirin 325 mg Tablet PO (08:43)
[2021-04-29] MEDS: folic acid 1 mg Tablet PO (08:43)
[2021-04-29] MEDS: gabapentin 300 mg Capsule PO (08:43)
[2021-04-29] MEDS: thiamine 100 mg Tablet PO (08:43)
[2021-04-29] MEDS: spironolactone 25 mg Tablet 12.5 MG PO (08:44)
--- NOTE | 2021-04-29 10:56 | NPU.GN ---
[facility] Topic:Ice Breakers General Mood of Group: Adina did not attend and participate in group today. She reported that she was waiting to leave and waiting for her ride.
[2021-04-29 11:15] VITALS: BP 122/87; PULSE 67; RESP 15; TEMP -13.3; TEMP 8.1; O2SAT 99
== END 2021-04-29 12:23 | disposition home or self-care (01) | DRG 885 ==
LOC: ER 04-23 02:22 → NP 04-23 12:56
PROVIDERS: Admitting Provider Psychiatry & Neurology Psychiatry; Emergency Provider Emergency Medicine; Visit Provider Psychiatry & Neurology Psychiatry
DX: F33.2 Major depressive disorder, recurrent severe without psychotic features (principal); F10.239 Alcohol dependence with withdrawal, unspecified; R45.851 Suicidal ideations; F10.229 Alcohol dependence with intoxication, unspecified
CPT/HCPCS: 80053; 80306; 80307; 85025; 97150; 97165; 99285